=== PATIENT | female | born 1985 | race Caucasian/White ===

== ENCOUNTER 2019-09-22 19:38 | Emergency (ER) | payer OTHER ==
[~2019-09-22] VITALS: Ht 162.6 cm; Wt 73.0 kg
[2019-09-22] MEDS ORDERED: MORPHINE SULFATE 10 MG/ML CPJ IM ONE (22:30)
[2019-09-22] MEDS ORDERED: KETOROLAC 30MG/ML VIAL IM ONE (22:30)
[2019-09-22] MEDS ORDERED: ONDANSETRON 4MG ODT PO ONE (22:45)
[2019-09-23 00:20] VITALS: BP 132/75
[2019-09-23 00:35] LABS: HCG SCREEN NEGATIVE
== END 2019-09-23 01:45 | disposition home or self-care (01) ==
LOC: ER 19:38
DX: S20.219A Contusion of unspecified front wall of thorax, initial encounter (principal); M79.642 Pain in left hand; V49.40XA Driver injured in collision with unspecified motor vehicles in traffic accident, initial encounter; Y93.89 Activity, other specified; Y92.410 Unspecified street and highway as the place of occurrence of the external cause
CPT/HCPCS: 71045; 71250; 73130; 84703; 96372; 99284; J1885; Q0162; Z7610